=== PATIENT | female | born 1970 | race American Indian/Alaskan Native ===

== ENCOUNTER 2020-12-22 02:51 | Emergency (ER) | payer MEDICAID ==
[2020-12-22 04:33] VITALS: BP 202/107
[2020-12-22] MEDS ORDERED: FAMOTIDINE 20 MG TAB PO ONE (04:37)
[2020-12-22] MEDS ORDERED: hydrOXYzine PAMOATE 25 MG CAP PO ONE (04:37)
[2020-12-22] MEDS ORDERED: methylPREDNISolone Sod Succinate 125 MG/2 ML INJ IM ONE (04:37)
--- NOTE | 2020-12-22 04:42 | Emergency Department Report ---
ED Allergic Reaction HPI - General Chief complaint: Skin Rash Stated complaint: BUG BITE/NAUSEA Source: patient Mode of arrival: Ambulatory Limitations: No Limitations - History of Present Illness Initial Comments: Patient is a 50-year-old -[place] female with a history of hypertension who presents to the ED with complaint of acute onset persistent diffuse facial itchy erythematous maculopapular urticarial rashes after being bitten by unknown insect about 2 hours ago. Patient states that the itching and the pain has worsened in the last 1 hour. Patient states that she had gone to help her son move into a new house and in the process some insects started crawling on her hair and bit her face and scalp as well as her chest wall. Patient denies swollen lips or tongue, dysphagia, dysphonia, nausea and vomiting, chest pain or shortness of breath, wheezing and chest tightness, abdominal pain, diarrhea, fever and chills, facial swelling and change in vision. MD Complaint: allergic reaction, other (Multiple insect bites) -: Sudden, hour(s) (2) Exposure: insect bite Symptoms: rash, itching. denies: lip swelling, difficulty swallowing, difficulty breathing, orolingual swelling, hoarseness, nausea, vomiting, other, abdominal pain Severity: moderate Treatment Prior to Arrival: none Previous Allergy History: none - Related Data Previous Rx's Medication Instructions Recorded Last Taken Type Famotidine [Pepcid] 20 mg PO BID #30 tablet 12/22/20 Unknown Rx Prednisone [predniSONE 10 mg 10 mg PO .TAPER #21 tab.ds.pk 12/22/20 Unknown Rx (6-Day Pack, 21 Tabs)] diphenhydrAMINE [Benadryl CAP] 25 mg PO Q6HR PRN #30 capsule 12/22/20 Unknown Rx Allergies Allergy/AdvReac Type Severity Reaction Status Date / Time No Known Allergies Allergy Unverified 12/22/20 04:33 ED Review of Systems ROS: Stated complaint: BUG BITE/NAUSEA Other details as noted in HPI Constitutional: denies: chills, fever Eyes: denies: eye pain, eye discharge, vision change ENT: denies: ear pain, throat pain Respiratory: denies: cough, shortness of breath, wheezing Cardiovascular: denies: chest pain, palpitations Endocrine: no symptoms reported Gastrointestinal: denies: abdominal pain, nausea, diarrhea Genitourinary: denies: urgency, dysuria, discharge Musculoskeletal: denies: back pain, joint swelling, arthralgia Skin: rash (Mildly erythematous maculopapular rashes with itching on the face), change in color, pruritus. denies: lesions Neurological: denies: headache, weakness, paresthesias Psychiatric: denies: anxiety, depression Hematological/Lymphatic: denies: easy bleeding, easy bruising ED Past Medical Hx - Past Medical History Previous Medical History?: Yes Hx Hypertension: Yes - Surgical History Additional Surgical History: , ovaries removed - Social History Smoking Status: Never Smoker Substance Use Type: None - Medications Home Medications: Home Medications Medication Instructions Recorded Confirmed Last Taken Type Famotidine [Pepcid] 20 mg PO BID #30 tablet 12/22/20 Unknown Rx Prednisone [predniSONE 10 mg 10 mg PO .TAPER #21 tab.ds.pk 12/22/20 Unknown Rx (6-Day Pack, 21 Tabs)] diphenhydrAMINE [Benadryl CAP] 25 mg PO Q6HR PRN #30 capsule 12/22/20 Unknown Rx ED Physical Exam - General Limitations: No Limitations General appearance: alert, in no apparent distress - Head Head exam: Present: atraumatic, normocephalic, normal inspection - Eye Eye exam: Present: normal appearance, PERRL, EOMI Pupils: Present: normal accommodation - ENT ENT exam: Present: normal exam, normal orophraynx, mucous membranes moist, TM's normal bilaterally, normal external ear exam - Neck Neck exam: Present: normal inspection, full ROM - Respiratory Respiratory exam: Present: normal lung sounds bilaterally. Absent: respiratory distress, wheezes, rales, rhonchi, chest wall tenderness, accessory muscle use, decreased breath sounds, prolonged expiratory - Cardiovascular Cardiovascular Exam: Present: normal rhythm, tachycardia, normal heart sounds. Absent: systolic murmur, diastolic murmur, rubs, gallop - GI/Abdominal GI/Abdominal exam: Present: soft, normal bowel sounds. Absent: tenderness, guarding, hyperactive bowel sounds, hypoactive bowel sounds, organomegaly - Extremities Exam Extremities exam: Present: normal inspection, full ROM, normal capillary refill - Back Exam Back exam: Present: normal inspection, full ROM. Absent: tenderness, CVA tenderness (R), CVA tenderness (L), muscle spasm, paraspinal tenderness, vertebral tenderness - Neurological Exam Neurological exam: Present: alert, oriented X3, CN II-XII intact, normal gait, reflexes normal - Psychiatric Psychiatric exam: Present: normal affect, normal mood, anxious - Skin Skin exam: Present: warm, dry, intact, normal color, rash (Diffuse multiple facial erythematous maculopapular urticarial rashes), erythema, urticaria ED Course Vital Signs 12/22/20 12/22/20 04:30 05:07 Temperature 98.2 F Pulse Rate 103 H Respiratory 17 18 Rate Blood Pressure 202/107 O2 Sat by Pulse 99 Oximetry ED Medical Decision Making - Medical Decision Making This is a 50-year-old -[place] female with a history of hypertension who presents to the ED with complaint of acute onset persistent diffuse facial itchy erythematous maculopapular urticarial rashes after being bitten by unknown insect about 2 hours ago. Patient states that the itching and the pain has worsened in the last 1 hour. Patient states that she had gone to help her son move into a new house and in the process some insects started crawling on her hair and bit her face and scalp as well as her chest wall. In the ED, patient is alert and oriented x3 and is not in any distress but anxious, tachycardic and hypertensive in triage. Patient was treated in the ED for acute allergic reaction and observed in the ED. - Differential Diagnosis Urticaria; allergic reaction; insect bites; anxiety Critical care attestation.: If time is entered above; I have spent that time in minutes in the direct care of this critically ill patient, excluding procedure time. ED Disposition Clinical Impression: Allergy to insect bites and stings, Facial rash, Acute urticaria Acute allergic reaction Qualifiers: Encounter type: initial encounter Qualified Code(s): T78.40XA - Allergy, unspecified, initial encounter Disposition: HOME / SELF CARE / HOMELESS Is pt being admited?: No Does the pt Need Aspirin: No Condition: Stable Instructions: Allergies, Adult, [id number], Insect Bite, Adult, [id number], Hives, [id number], Rash, Adult, [id number] Additional Instructions: Take medication with food, drink plenty of fluids and follow-up with your primary care physician in 3 to 5 days for reevaluation. Return to the ED immediately if symptoms get worse. Prescriptions: diphenhydrAMINE [Benadryl CAP] 25 mg PO Q6HR PRN #30 capsule PRN Reason: Itching and swelling Famotidine [Pepcid] 20 mg PO BID #30 tablet Prednisone [predniSONE 10 mg (6-Day Pack, 21 Tabs)] 10 mg PO .TAPER #21 tab.ds.pk Referrals: [facility] [Provider Group] - 3-5 Days Forms: Work/School Release Form(ED) Time of Disposition: 04:43 Print Language: [place] CITIZ[place]
[2020-12-22] MEDS ORDERED: IBUPROFEN 600 MG TAB PO ONE (04:45)
== END 2020-12-22 06:25 | disposition home or self-care (01) ==
LOC: ED 02:51
DX: T78.40XA Allergy, unspecified, initial encounter (principal); L50.9 Urticaria, unspecified; I10 Essential (primary) hypertension; Z91.038 Other insect allergy status; Z98.890 Other specified postprocedural states; Z79.899 Other long term (current) drug therapy; X58.XXXA Exposure to other specified factors, initial encounter
CPT/HCPCS: 96372; 99282; J2930; Q0177